=== PATIENT | male | born 1980 | race African-American/Black ===

== ENCOUNTER 2019-12-26 16:08 | Emergency (ER) | payer SELFPAY ==
[~2019-12-26] VITALS: Ht 165.1 cm; Wt 81.8 kg
[2019-12-26] MEDS ORDERED: cefTRIAXone IM 250 MG VIAL IM ONE (17:15)
[2019-12-26] MEDS ORDERED: metroNIDAZOLE 500 MG TABLET PO ONE (17:15)
[2019-12-26] MEDS ORDERED: AZITHROMYCIN 250 MG TABLET. PO ONE (17:15)
--- NOTE | 2019-12-26 17:20 | PHYS DOC ---
Past Medical History Past Medical History: No Pertinent History Past Surgical History: No Surgical History Smoking Status: Current Every Day Smoker Additional Information: 1.5/ppd Alcohol Use: None General Adult EDM: Chief Complaint: SEXUALLY TRANSMITTED DISEASE HPI: HPI: Patient is a 39 year old male who presents with a girlfriend to be treated for STDs. Patient reports dysuria. Review of Systems: Review of Systems: Constitutional: Denies fever or chills. [] GI: Denies abdominal pain, nausea, vomiting, bloody stools or diarrhea. [] : Reports dysuria and request STD treatment Musculoskeletal: Denies back pain or joint pain. [] Integument: Denies rash. [] Neurologic: Denies headache, focal weakness or sensory changes. [] Psychiatric: Denies depression or anxiety. [] Heart Score: Risk Factors: Risk Factors: DM, Current or recent (<one month) smoker, HTN, HLP, family history of CAD, obesity. Risk Scores: Score 0 - 3: 2.5% MACE over next 6 weeks - Discharge Home Score 4 - 6: 20.3% MACE over next 6 weeks - Admit for Clinical Observation Score 7 - 10: 72.7% MACE over next 6 weeks - Early Invasive Strategies Current Medications: Current Medications Medications (Trade) Dose Ordered Sig/Adam Start Time Stop Time Status Last Admin Dose Admin Azithromycin (Zithromax) 1,000 mg 1X ONCE 12/26/19 17:15 12/26/19 17:16 DC Ceftriaxone Sodium (Rocephin Im) 250 mg 1X ONCE 12/26/19 17:15 12/26/19 17:16 DC Metronidazole (Flagyl) 2,000 mg 1X ONCE 12/26/19 17:15 12/26/19 17:16 DC Allergies: Allergies: Allergies Coded Allergies Type Severity Reaction Last Updated Verified No Known Drug Allergies 12/26/19 No Physical Exam: PE: Constitutional: Well developed, well nourished, no acute distress, non-toxic appearance. [] Skin: Warm, dry, no erythema, no rash. [] Back: No tenderness, no CVA tenderness. [] Extremities: No tenderness, no cyanosis, no clubbing, ROM intact, no edema. [] Neurologic: Alert and oriented X 3, normal motor function, normal sensory function, no focal deficits noted. [] Psychologic: Affect normal, judgement normal, mood normal. [] Current Patient Data: Vital Signs: Vital Signs Date Time Temp Pulse Resp B/P (MAP) Pulse Ox O2 Delivery O2 Flow Rate FiO2 12/26/19 16:35 98.1 70 18 126/72 (90) 98 Room Air 98.1 EKG: EKG: [] Radiology/Procedures: Radiology/Procedures: [] Course & Med Decision Making: Course & Med Decision Making Pertinent Labs and Imaging studies reviewed. (See chart for details) This is a 39-year-old male patient presenting to the ED today for STD treatment. Treatment was provided as well as education. Dragon Disclaimer: [employer] Disclaimer: This electronic medical record was generated, in whole or in part, using a voice recognition dictation system. Departure Departure Impression: Primary Impression: Concern about STD in male without diagnosis Disposition: 01 HOME, SELF-CARE Condition: STABLE Referrals: NO PCP (PCP) follow up with the health department as needed Patient Instructions: Sexually Transmitted Disease Additional Instructions: You were treated for STDs. Use protection at all times. Follow-up with the health department for further concerns. No sex for 7 days. Justicifation of Admission Dx: Justifications for Admission: Justification of Admission Dx: N/A APOLONIA DONG APRN Dec 26, 2019 17:20
[2019-12-26 17:43] VITALS: BP 138/71
== END 2019-12-26 17:43 | disposition home or self-care (01) ==
LOC: ER 16:08
DX: R30.0 Dysuria (principal); F17.200 Nicotine dependence, unspecified, uncomplicated
CPT/HCPCS: 96372; 99283; J0696